=== PATIENT | female | born 1965 ===

== ENCOUNTER 2017-04-22 13:21 | Observation (INO) | payer OTHER ==
[2017-04-22 13:26] VITALS: BMI 41.3
[2017-04-22] MEDS ORDERED: Sodium Chloride 0.9% 1,000 ML IV STA (13:40)
--- NOTE | 2017-04-22 13:43 | ED PDOC ---
Arrival/HPI - General Chief Complaint: ENT Problem Time Seen by Provider: 04/22/17 13:26 Historian: Patient, Family (Daughter) - History of Present Illness Narrative History of Present Illness (Text): 04/22/17 13:36 A 51 year old female, who denies any past medical history, presents to the emergency department complaining of chest pain for the past 3 days. History obtained through daughter who translated for patient. Patient reports she began experiencing chest pain, partly worse with inspiration but associated with sob and worse with exertion. She then developed throat pain when swallowing any food or drinks, and now both her throat pain and cp are exacerbated with deep breaths. She also has bilateral ear pain and a headache. Patient took Tylenol, with no relief. Patient notes a fever of 101, but denies nausea, vomiting, abdominal pain, cough, dizziness, vision changes or any other complaints. Time/Duration: Other (3 days) Symptom Course: Worsening Quality: Other Context: Home Past Medical History - Provider Review Nursing Documentation Reviewed: Yes - Infectious Disease Hx of Infectious Diseases: None - Tetanus Immunization Tetanus Immunization: Unknown - Cardiac Hx Cardiac Disorders: No - Pulmonary Hx Respiratory Disorders: No - Neurological Hx Neurological Disorder: No - HEENT Hx HEENT Disorder: No - Renal Hx Renal Disorder: No - Endocrine/Metabolic Hx Endocrine Disorders: No - Hematological/Oncological Hx Blood Disorders: No - Integumentary Hx Dermatological Disorder: No - Musculoskeletal/Rheumatological Hx Musculoskeletal Disorders: No Hx Falls: No - Gastrointestinal Hx Gastrointestinal Disorders: No - Genitourinary/Gynecological Hx Genitourinary Disorders: No - Psychiatric Hx Psychophysiologic Disorder: No Hx Depression: No Hx Emotional Abuse: No Hx Physical Abuse: No Hx Substance Use: No - Surgical History Hx Section: Yes (x3) Hx Orthopedic Surgery: Yes (left knee) - Suicidal Assessment Feels Threatened In Home Enviroment: No Family/Social History - Physician Review Nursing Documentation Reviewed: Yes Family/Social History: No Known Family HX Smoking Status: Never Smoked Hx Alcohol Use: Yes (socially) Frequency of alcohol use: Socially Hx Substance Use: No Hx Substance Use Treatment: No Allergies/Home Meds Allergies/Adverse Reactions: Allergies No Known Allergies Allergy (Verified 04/22/17 13:27) Home Medications: Home Meds Medication Instructions Recorded Confirmed No Known Home Med 04/22/17 04/22/17 Review of Systems - Physician Review All systems were reviewed & negative as marked: Yes - Review of Systems Constitutional: Fevers Eyes: absent: Vision Changes ENT: TMJ Pain Respiratory: absent: SOB, Cough Cardiovascular: Chest Pain (when swallowing) Gastrointestinal: absent: Abdominal Pain, Nausea, Vomiting Neurological: Headache. absent: Dizziness Physical Exam Vital Signs Reviewed: Yes Vital Signs Temp Pulse Resp BP Pulse Ox 04/22/17 15:54 63 18 127/69 99 04/22/17 13:50 99.3 F 04/22/17 13:31 98.0 F 75 18 117/64 100 Temperature: Afebrile Blood Pressure: Normal Pulse: Regular Respiratory Rate: Normal Appearance: Positive for: Well-Appearing, Non-Toxic, Comfortable, Other ( morbidly obese female ) Pain Distress: None Mental Status: Positive for: Alert and Oriented X 3 - Systems Exam Head: Present: Atraumatic, Normocephalic Pupils: Present: PERRL Conjunctiva: Present: Normal Ears: Present: Normal, NORMAL TM, Normal Canal. No: Erythema, TM Bulging, Fluid , TM Perf Mouth: Present: Moist Mucous Membranes Pharnyx: Present: Normal. No: ERYTHEMA, EXUDATE, TONSILS ENLARGED, Peritonsilar Swelling, Uvular Deviation, Muffled/Hoarse Voice, Strider, Soft Palate/Uvular Edema Neck: Present: Normal Range of Motion Respiratory/Chest: Present: Clear to Auscultation, Good Air Exchange. No: Respiratory Distress, Accessory Muscle Use Cardiovascular: Present: Regular Rate and Rhythm, Normal S1, S2. No: Murmurs Abdomen: Present: Normal Bowel Sounds. No: Tenderness, Distention, Peritoneal Signs Back: Present: Normal Inspection Upper Extremity: Present: Normal Inspection. No: Cyanosis, Edema Lower Extremity: Present: Normal Inspection. No: Edema Neurological: Present: GCS=15, CN II-XII Intact, Speech Normal Skin: Present: Warm, Dry, Normal Color. No: Rashes Psychiatric: Present: Alert, Oriented x 3, Normal Insight, Normal Concentration Medical Decision Making ED Course and Treatment: 04/22/17 13:36 Impression: A 51 year old female with chest pain with exertion and throat pain when swallowing. Differential: ACS vs epiglottitis vs Viral pharyngitis muscular pain vs. GERD vs PE Plan: -- Chest CT -- Neck CT -- Chest xray -- EKG -- Labs -- Toradol and IV fluids -- Reassess and disposition Progress Notes: EKG shows NSR at 67 BPM with normal intervals, borderline LAD, inverted T wave in III and flat in avF; unchanged from 10/26/15. Report Date : 04/22/2017 15:29:49 PROCEDURE: CT NECK WITH CONTRAST Dictator : Donald Zheng MD IMPRESSION: Unremarkable contrast enhanced CT of the neck. Report Date : 04/22/2017 15:33:32 PROCEDURE: CT Chest with contrast (Pulmonary Angiogram) Dictator : Donald Zheng MD IMPRESSION: No evidence of pulmonary embolus Report Date : 04/22/2017 15:35:31 Procedure: Chest xray Dictator : Donald Zheng MD IMPRESSION: No active disease. 04/22/17 16:09 Morbidly obese patient with noted history with exertional chest pain, but then throat pain that may be a pharyngitis. EKG with t wave findings and never worked up before. Labs are nondiagnostic. CTA imaging of the soft tissue neck are unremarkable. She reports improvement of the throat pain only with toradol. Patient will need further assessment for possible cardiac etiology of symptoms. Will place on on-call doctor's service, Dr. Sarmiento, as discussed with him. - Lab Interpretations Lab Results: 04/22/17 14:00 04/22/17 14:00 Lab Results 04/22/17 14:00: Sodium 141, Potassium 4.6, Chloride 100, Carbon Dioxide 33, Anion Gap 13, BUN 11, Creatinine 0.7, Est GFR ( Amer) > 60, Est GFR (Non- Af Amer) > 60, Random Glucose 96, Calcium 9.4, Magnesium 1.8, Total Bilirubin 0.7, AST 22, ALT 18, Alkaline Phosphatase 83, Lactate Dehydrogenase 366, Total Creatine Kinase 64, Troponin I < 0.01, NT-Pro-B Natriuret Pep 121, Total Protein 7.6, Albumin 3.9, Globulin 3.7, Albumin/Globulin Ratio 1.1, Lipase 85 04/22/17 14:00: PT 10.7, INR 0.99, APTT 30.6 04/22/17 14:00: WBC 11.4 H D, RBC 4.09, Hgb 12.2, Hct 37.0, MCV 90.5, MCH 29.8, MCHC 33.0, RDW 12.7, Plt Count 228, MPV 10.7, Gran % 66.5, Lymph % (Auto) 22.7, [place] % (Auto) 8.4 H, Eos % (Auto) 2.0, Baso % (Auto) 0.4, Gran # 7.56 H, Lymph # 2.6, [place] # 1.0 H, Eos # 0.2, Baso # 0.05 I have reviewed the lab results: Yes - RAD Interpretation Radiology Orders: 04/22/17 13:38 NECK SOFT TISSUE W/CONTRAST [CT] Stat 04/22/17 13:39 ANGIO CHEST PE PROTOCOL [CT] Stat 04/22/17 13:40 CHEST PORTABLE [RAD] Stat - Medication Orders Current Medication Orders: Discontinued Medications Sodium Chloride (Sodium Chloride 0.9%) 1,000 mls @ 999 mls/hr IV .Q1H1M STA Stop: 04/22/17 14:40 Last Admin: 04/22/17 14:08 Dose: 999 mls/hr Iodixanol (Visipaque) Confirm Administered Dose 150 ml IV .STK-MED ONE Stop: 04/22/17 13:57 Ketorolac Tromethamine (Toradol) 30 mg IVP STAT STA Stop: 04/22/17 13:42 Last Admin: 04/22/17 14:07 Dose: 30 mg - Scribe Statement The provider has reviewed the documentation as recorded by the Meghana Wagner Provider Scribe Attestation: All medical record entries made by the Josyibkorey were at my direction and personally dictated by me. I have reviewed the chart and agree that the record accurately reflects my personal performance of the history, physical exam, medical decision making, and the department course for this patient. I have also personally directed, reviewed, and agree with the discharge instructions and disposition. Disposition/Present on Arrival - Present on Arrival Any Indicators Present on Arrival: No History of DVT/PE: No History of Uncontrolled Diabetes: No Urinary Catheter: No History of Decub. Ulcer: No History Surgical Site Infection Following: None - Disposition Have Diagnosis and Disposition been Completed?: Yes Diagnosis: Chest pain, Throat pain Disposition: HOSPITALIZED Disposition Time: 16:00 Patient Plan: Observation, Telemetry Patient Problems: Current Active Problems Problem Status Onset Chest pain Acute Throat pain Acute Condition: FAIR Discharge Instructions (ExitCare): Chest Pain (ED) Referrals: PCP,NO [Primary Care Provider] - Follow up with primary Forms: [employer] (Ukrainian)
[2017-04-22] MEDS ORDERED: Iodixanol 320 mg/ml 150 ml Bottle IV ONE (13:56)
[2017-04-22 14:10] LABS: BASO # 0.05 K/mm3 (0.0-2.0); BASO % 0.4 % (0.0-3.0); EOS # 0.2 (0.0-0.7); GRAN # 7.56 (1.4-6.5); GRAN % 66.5 % (50.0-68.0); LYMPH # 2.6 (1.2-3.4); LYMPH % 22.7 % (22.0-35.0); MEAN CELL VOLUME 90.5 fl (80.0-105.0); MEAN CORPUSCULAR HEMOGLOBIN 29.8 pg (25.0-35.0); MEAN PLATELET VOLUME 10.7 fl (7.0-11.0); MONO % 8.4 % (1.0-6.0); RED CELL DISTRIBUTION WIDTH 12.7 % (11.5-14.5); WHITE BLOOD COUNT 11.4 10^3/ul (4.5-11.0)
[2017-04-22 14:18] LABS: ALB/GLOB RATIO 1.1 (1.1-1.8); ALKALINE PHOSPHATASE 83 U/L (38-133); ALT/SGPT 18 U/L (7-56); AST/SGOT 22 U/L (15-39); BILIRUBIN,TOTAL 0.7 mg/dL (0.2-1.3); BLOOD UREA NITROGEN 11 mg/dL (7-21); CALCIUM 9.4 mg/dL (8.4-10.5); CARBON DIOXIDE 33 mmol/L (21-33); CHLORIDE 100 mmol/L (98-107); GFR AFRICAN-AMERICAN > 60; GLUCOSE,RANDOM 96 mg/dL (70-110); INR 0.99 (0.93-1.08); LIPASE 85 U/L (23-300); MAGNESIUM 1.8 mg/dL (1.7-2.2); PARTIAL THROMBOPLASTIN TIME 30.6 Seconds (23.7-30.8); POTASSIUM 4.6 mmol/L (3.6-5.0); SODIUM 141 mmol/L (132-148); TOTAL PROTEIN 7.6 g/dL (5.8-8.3)
[2017-04-22 14:33] LABS: TROPONIN I < 0.01 ng/mL
--- NOTE | 2017-04-22 15:31 | CT ---
PROCEDURE: CT NECK WITH CONTRAST HISTORY: severe throat/cp - r/o lesion, epiglottitis COMPARISON: None TECHNIQUE: CT of the neck with intravenous contrast. Coronal and sagittal reformats generated. Intravenous contrast dose: 150 cc of Omni 350 Radiation dose: DLP 623 mGy-cm This CT exam was performed using one or more of the following dose reduction techniques: Automated exposure control, adjustment of the mA and/or kV according to patient size, and/or use of iterative reconstruction technique. FINDINGS: NASOPHARYNX: Unremarkable. SUPRAHYOID NECK: Unremarkable oropharynx, oral cavity, parapharyngeal space and retropharyngeal space. INFRAHYOID NECK: Unremarkable larynx, hypopharynx, and supraglottic space. Vocal cords intact. MASS: None. GLANDS: Parotid and submandibular glands unremarkable. Normal size thyroid gland, without nodule. LYMPH NODES: Normal. No lymphadenopathy. CERVICAL SPINE: No fracture or focal lesion. VASCULAR STRUCTURES: Unremarkable. OTHER FINDINGS: None. IMPRESSION: Unremarkable contrast enhanced CT of the neck.
--- NOTE | 2017-04-22 15:35 | CT ---
PROCEDURE: CT Chest with contrast (Pulmonary Angiogram) HISTORY: chest pain, throat pain - r/o PE COMPARISON: None available. TECHNIQUE: Axial computed tomography images were obtained of the chest in the pulmonary arterial phase of enhancement. Coronal and sagittal reformatted images were created and reviewed. Intravenous contrast dose: Radiation dose: Total exam DLP = 917 mGy-cm. This CT exam was performed using one or more of the following dose reduction techniques: Automated exposure control, adjustment of the mA and/or kV according to patient size, and/or use of iterative reconstruction technique. FINDINGS: PULMONARY ARTERIES: Unremarkable. No pulmonary embolism. There are some technical difficulties on the PE portion of the study. The upper mediastinum was also image the on the neck study. A combination of the 2 studies shows no evidence of pulmonary embolus AORTA: No acute findings. No thoracic aortic aneurysm. LUNGS: Unremarkable. No nodule, mass or pulmonary consolidation. PLEURAL SPACES: Unremarkable. No effusion or pneuomothorax. HEART: Unremarkable. No cardiomegaly. No significant pericardial effusion. LYMPH NODES: No lymphadenopathy. BONES, CHEST WALL: Unremarkable. No fracture or destructive lesion OTHER FINDINGS: Unremarkable. IMPRESSION: No evidence of pulmonary embolus
--- NOTE | 2017-04-22 15:37 | RAD ---
HISTORY: cp COMPARISON: 09/14/2015 FINDINGS: LUNGS: No active pulmonary disease. PLEURA: No significant pleural effusion identified, no pneumothorax apparent. CARDIOVASCULAR: Mild cardiomegaly OSSEOUS STRUCTURES: No significant abnormalities. VISUALIZED UPPER ABDOMEN: Normal. OTHER FINDINGS: None. IMPRESSION: No active disease.
--- NOTE | 2017-04-22 20:52 | CP.PCM.HP ---
<Maddie Parrish - Last Filed: 04/22/17 22:14> History of Present Illness - History of Present Illness History of Present Illness: PGY-[address] Betts A 51 year old female, who denies any significant past medical history, presents to the emergency department complaining of chest pain for the past 2 days. by bedside translated for the patient. 2 days ago while at work, pt was walking but suddenly felt a 7/10 pressure-like chest pain at mid-substernal area radiating to mid-back and bottom of L breast. Denies diaphoresis, dizziness , palpitation, nausea at the time. Resting relieved the pain, but exertion makes it worse. The pain is occassinally dyspnic. yesterday, when swallowing any food or drinks, and now both her throat pain and cp are exacerbated with deep breaths. She also has bilateral ear pain and a headache. Patient took Tylenol, with no relief. Patient notes a fever of 101, At baseline, pt able to climb 1 flight of stair without SOB. Sleep on 2 pillows but denied orthopnea. No Hx Gerd or acid reflux ROS denies nausea, vomiting, abdominal pain, cough, dizziness, vision changes or edema. No recent travels, sick contact, animal contacts, hiking. Denies trauma, sudden accident, exercising. Upon ED arrival, T 99.3 rectal P 71 BP 111/49 RR 18 100 RA WBC 11.4 coags normal CMP normal Trops < 0.01 Amylase lipse nl PMH:UTI - multiple times. Obesity. Placenta previa. Seasonal allergies. PSH:Left knee meniscus repair 2015. C-Sections x 3. FH: mom- DM, dad - htn SOCIAL HISTORY:Denies smoking, ETOH or drug abuse. Lives in [place], in a house with 2 daughters and , Worked in [employer] in [employer] de[employer]. [employer] HISTORY: ,LMP March 25 2105. ALLERGIES:No known drug allergies. HOME MEDICATIONS:Denies. No PMD Present on Admission - Present on Admission Any Indicators Present on Admission: No Past Patient History - Infectious Disease Hx of Infectious Diseases: None - Tetanus Immunizations Tetanus Immunization: Unknown - Past Medical History & Family History Past Medical History?: Yes - Past Social History Smoking Status: Never Smoked - CARDIAC Hx Cardiac Disorders: No - PULMONARY Hx Respiratory Disorders: No - NEUROLOGICAL Hx Neurological Disorder: No - HEENT Hx HEENT Problems: No - RENAL Hx Chronic Kidney Disease: No - ENDOCRINE/METABOLIC Hx Endocrine Disorders: No - HEMATOLOGICAL/ONCOLOGICAL Hx Blood Disorders: No - INTEGUMENTARY Hx Dermatological Problems: No - MUSCULOSKELETAL/RHEUMATOLOGICAL Hx Musculoskeletal Disorders: No Hx Falls: No - GASTROINTESTINAL Hx Gastrointestinal Disorders: No - GENITOURINARY/GYNECOLOGICAL Hx Genitourinary Disorders: No - PSYCHIATRIC Hx Psychophysiologic Disorder: No Hx Depression: No Hx Emotional Abuse: No Hx Physical Abuse: No Hx Substance Use: No - SURGICAL HISTORY Hx Section: Yes (x3) Hx Orthopedic Surgery: Yes (left knee) Meds Allergies/Adverse Reactions: Allergies Allergy/AdvReac Type Severity Reaction Status Date / Time No Known Allergies Allergy Verified 04/22/17 13:27 Physical Exam - Constitutional Appears: No Acute Distress - Head Exam Head Exam: ATRAUMATIC, NORMAL INSPECTION, NORMOCEPHALIC - Eye Exam Eye Exam: EOMI, Normal appearance, PERRL. absent: Scleral icterus - ENT Exam ENT Exam: Mucous Membranes Moist - Neck Exam Neck exam: Negative for: Lymphadenopathy - Respiratory Exam Respiratory Exam: Clear to Auscultation Bilateral, NORMAL BREATHING PATTERN. absent: Rales, Rhonchi, Wheezes - Cardiovascular Exam Cardiovascular Exam: REGULAR RHYTHM, +S1, +S2 - GI/Abdominal Exam GI & Abdominal Exam: Normal Bowel Sounds, Rigid, Soft. absent: Distended, Firm , Tenderness - Extremities Exam Extremities exam: Positive for: normal capillary refill, pedal pulses present. Negative for: calf tenderness, pedal edema - Back Exam Back exam: absent: CVA tenderness (L), CVA tenderness (R) - Neurological Exam Neurological exam: Alert, CN II-XII Intact, Oriented x3, Reflexes Normal - Psychiatric Exam Psychiatric exam: Normal Affect, Normal Mood - Skin Skin Exam: Dry, Warm Results - Vital Signs Recent Vital Signs: Last Vital Signs Temp 99.3 F 04/22/17 13:50 Pulse 71 04/22/17 20:18 Resp 16 04/22/17 20:18 BP 136/61 04/22/17 20:18 Pulse Ox 99 04/22/17 20:18 - Labs Result Diagrams: 04/22/17 14:00 04/22/17 14:00 Assessment & Plan - Assessment and Plan (Free Text) Plan: A 51 year old female, who denies any significant past medical history, admitted for chest pain r/o ACS. Chest pain r/o ACS - Cardio consult - trops x 3 - A1c, lipid, TSH - toradol prn Mild Fever with mild leukocytosis - u/a pending - allergic vs viral, doubt bacterial - flu swab - ocean nasal spray, cepacol - tamiflu - tylenol prn Prophylaixs - lovenox - protonix - Heart health diet s/r/d/w Dr. Betts - Date & Time Date: 04/22/17 Time: 22:04 <Carlos Enrique Betts - Last Filed: 04/26/17 09:07> Results - Vital Signs Recent Vital Signs: Last Vital Signs Temp 98.5 F 04/23/17 11:24 Pulse 60 04/23/17 11:24 Resp 18 04/23/17 11:24 BP 112/58 L 04/23/17 11:24 Pulse Ox 100 04/23/17 06:00 - Labs Result Diagrams: 04/23/17 05:30 04/23/17 05:30 Attending/Attestation - Attestation I have personally seen and examined this patient.: Yes I have fully participated in the care of the patient.: Yes I have reviewed all pertinent clinical information: Yes Notes (Text): 04/26/17 09:07 Agree with history, physical examination, assessment and plan.
[2017-04-22] MEDS ORDERED: Pneumococcal 23-Valent Vaccine IM ONE (23:02)
[2017-04-23 06:23] LABS: BASO # 0.06 K/mm3 (0.0-2.0); BASO % 0.7 % (0.0-3.0); EOS # 0.3 (0.0-0.7); EOS % 3.4 % (1.5-5.0); GRAN # 4.87 (1.4-6.5); LYMPH # 2.5 (1.2-3.4); LYMPH % 28.1 % (22.0-35.0); MEAN CELL VOLUME 91.6 fl (80.0-105.0); MEAN CORPUSCULAR HEMOGLOBIN 29.3 pg (25.0-35.0); MEAN CORPUSCULAR HGB CONC 31.9 g/dl (31.0-37.0); MONO # 1.1 (0.1-0.6); MONO % 12.8 % (1.0-6.0); WHITE BLOOD COUNT 8.9 10^3/ul (4.5-11.0)
[2017-04-23 06:37] LABS: ALKALINE PHOSPHATASE 77 U/L (38-133); ALT/SGPT 18 U/L (7-56); AST/SGOT 21 U/L (15-39); BILIRUBIN,TOTAL 0.4 mg/dL (0.2-1.3); BLOOD UREA NITROGEN 14 mg/dL (7-21); CALCIUM 9.3 mg/dL (8.4-10.5); CARBON DIOXIDE 31 mmol/L (21-33); CHLORIDE 103 mmol/L (98-107); CHOLESTEROL 203 mg/dL (130-200); GFR AFRICAN-AMERICAN > 60; GLUCOSE,RANDOM 95 mg/dL (70-110); POTASSIUM 4.5 mmol/L (3.6-5.0); SODIUM 142 mmol/L (132-148); TOTAL PROTEIN 7.2 g/dL (5.8-8.3)
[2017-04-23 06:46] VITALS: O2SAT 100
[2017-04-23 07:26] LABS: TROPONIN I < 0.01 ng/mL
[2017-04-23 08:37] LABS: URINE BILIRUBIN NEGATIVE (NEGATIVE); URINE BLOOD TRACE-INTACT (NEGATIVE); URINE GLUCOSE (UA) NEGATIVE (NEGATIVE); URINE KETONE NEGATIVE (NEGATIVE); URINE LEUKOCYTE ESTERASE NEGATIVE Leu/uL (NEGATIVE); URINE PROTEIN NEGATIVE mg/dL (<30 mg/dL); URINE UROBILINOGEN 0.2 E.U./dL (<1 E.U./dL)
[2017-04-23 08:39] LABS: URINE APPEARANCE CLEAR (CLEAR); URINE COLOR YELLOW (YELLOW)
[2017-04-23 08:54] LABS: URINE AMORPHOUS SEDIMENT FEW; URINE BACTERIA FEW (NEG); URINE EPITHELIAL CELLS 0 - 2 /hpf (0-5); URINE WBC NEGATIVE /hpf (0-6)
--- NOTE | 2017-04-23 09:49 | CARD ---
APPROVED REPORT EKG Measurement Heart [id number] <Conclusion> Normal sinus rhythm Minimal voltage criteria for LVH, may be normal variant Borderline ECG
[2017-04-23] MEDS ORDERED: Benzocaine/Menthol (Cepacol) Lozenge MT SCH (10:00)
[2017-04-23 11:24] VITALS: BP 112/58; PULSE 60; RESP 18; TEMP 98.5
--- NOTE | 2017-04-23 13:01 | CP.PCM.DIS ---
<AzaelXavi - Last Filed: 04/24/17 15:27> Provider - Provider Date of Admission: 04/22/17 16:03 Attending physician: Mehdi Blanchard MD Primary care physician: NO PRIMARY CARE PROVIDER Time Spent in preparation of Discharge (in minutes): 45 Hospital Course - Lab Results Lab Results: Most Recent Lab Values WBC 8.9 10^3/ul (4.5-11.0) D 04/23/17 05:30 RBC 3.93 10^6/uL (3.5-6.1) 04/23/17 05:30 Hgb 11.5 g/dL (12.0-16.0) L 04/23/17 05:30 Hct 36.0 % (36.0-48.0) 04/23/17 05:30 MCV 91.6 fl (80.0-105.0) 04/23/17 05:30 MCH 29.3 pg (25.0-35.0) 04/23/17 05:30 MCHC 31.9 g/dl (31.0-37.0) 04/23/17 05:30 RDW 13.0 % (11.5-14.5) 04/23/17 05:30 Plt Count 216 10^3/uL (120.0-450.0) 04/23/17 05:30 MPV 11.0 fl (7.0-11.0) 04/23/17 05:30 Gran % 55.0 % (50.0-68.0) 04/23/17 05:30 Lymph % (Auto) 28.1 % (22.0-35.0) 04/23/17 05:30 [place] % (Auto) 12.8 % (1.0-6.0) H 04/23/17 05:30 Eos % (Auto) 3.4 % (1.5-5.0) 04/23/17 05:30 Baso % (Auto) 0.7 % (0.0-3.0) 04/23/17 05:30 Gran # 4.87 (1.4-6.5) 04/23/17 05:30 Lymph # 2.5 (1.2-3.4) 04/23/17 05:30 [place] # 1.1 (0.1-0.6) H 04/23/17 05:30 Eos # 0.3 (0.0-0.7) 04/23/17 05:30 Baso # 0.06 K/mm3 (0.0-2.0) 04/23/17 05:30 PT 10.7 Seconds (9.9-11.8) 04/22/17 14:00 INR 0.99 (0.93-1.08) 04/22/17 14:00 APTT 30.6 Seconds (23.7-30.8) 04/22/17 14:00 Sodium 142 mmol/L (132-148) 04/23/17 05:30 Potassium 4.5 mmol/L (3.6-5.0) 04/23/17 05:30 Chloride 103 mmol/L (98-107) 04/23/17 05:30 Carbon Dioxide 31 mmol/L (21-33) 04/23/17 05:30 Anion Gap 13 (10-20) 04/23/17 05:30 BUN 14 mg/dL (7-21) 04/23/17 05:30 Creatinine 0.7 mg/dL (0.5-1.4) 04/23/17 05:30 Est GFR ( Amer) > 60 04/23/17 05:30 Est GFR (Non-Af Amer) > 60 04/23/17 05:30 Random Glucose 95 mg/dL (70-110) 04/23/17 05:30 Hemoglobin A1c 5.1 % (4.2-6.5) 04/23/17 05:30 Calcium 9.3 mg/dL (8.4-10.5) 04/23/17 05:30 Magnesium 1.8 mg/dL (1.7-2.2) 04/22/17 14:00 Total Bilirubin 0.4 mg/dL (0.2-1.3) 04/23/17 05:30 AST 21 U/L (15-39) 04/23/17 05:30 ALT 18 U/L (7-56) 04/23/17 05:30 Alkaline Phosphatase 77 U/L (38-133) 04/23/17 05:30 Lactate Dehydrogenase 366 U/L (333-699) 04/22/17 14:00 Total Creatine Kinase 64 U/L (35-230) 04/22/17 14:00 Troponin I < 0.01 ng/mL 04/23/17 05:30 NT-Pro-B Natriuret Pep 121 pg/mL (0-450) 04/22/17 14:00 Total Protein 7.2 g/dL (5.8-8.3) 04/23/17 05:30 Albumin 3.6 g/dL (3.0-4.8) 04/23/17 05:30 Globulin 3.7 gm/dL 04/23/17 05:30 Albumin/Globulin Ratio 1.0 (1.1-1.8) L 04/23/17 05:30 Triglycerides 92 mg/dL (35-160) 04/23/17 05:30 Cholesterol 203 mg/dL (130-200) H 04/23/17 05:30 LDL Cholesterol Direct 118 mg/dL (0-129) 04/23/17 05:30 HDL Cholesterol 45 mg/dL (29-60) 04/23/17 05:30 Lipase 85 U/L (23-300) 04/22/17 14:00 TSH 3rd Generation 2.09 mIU/mL (0.46-4.68) 04/23/17 05:30 Urine Color Yellow (YELLOW) 04/23/17 08:26 Urine Appearance Clear (CLEAR) 04/23/17 08:26 Urine pH 6.0 (4.7-8.0) 04/23/17 08:26 Ur Specific [place] 1.020 (1.005-1.035) 04/23/17 08:26 Urine Protein Negative mg/dL (<30 mg/dL) 04/23/17 08:26 Urine Glucose (UA) Negative mg/dL (NEGATIVE) 04/23/17 08:26 Urine Ketones Negative mg/dL (NEGATIVE) 04/23/17 08:26 Urine Blood Trace-intact (NEGATIVE) H 04/23/17 08:26 Urine Nitrate Negative (NEGATIVE) 04/23/17 08:26 Urine Bilirubin Negative (NEGATIVE) 04/23/17 08:26 Urine Urobilinogen 0.2 E.U./dL (<1 E.U./dL) 04/23/17 08:26 Ur Leukocyte Esterase Negative Regla/uL (NEGATIVE) 04/23/17 08:26 Urine RBC 1 - 3 /hpf (0-2) 04/23/17 08:26 Urine WBC Negative /hpf (0-6) 04/23/17 08:26 Ur Epithelial Cells 0 - 2 /hpf (0-5) 04/23/17 08:26 Amorphous Sediment Few 04/23/17 08:26 Urine Bacteria Few (NEG) 04/23/17 08:26 Urine HCG, Qual Negative (NEGATIVE) 04/23/17 08:26 Influenza Typ A,B (EIA) Negative for flu a/b (NEGATIVE) 04/22/17 22:18 - Hospital Course Hospital Course: This is 51 yr. female complaining of chest pain for two days. She reports she was at work and at rest while this occurred and rated the pain a 7/10 in severity. She also reported the pain radiating under her left breast. On , the patient had an EKG done that show normals sinus rhythm, chest xray that showed no active pulmonary disease, chest ct that was negative, and a soft tissue CT of the neck that was unremarkable. She also had troponins (-)x3. She was seen by Dr. Madden on 04/23 and agreed that she could go home today and follow up as an outpatient. We gave the patient a card to the [facility] and advised her to establish primary care there for follow up. Discharge Exam - Head Exam Head Exam: ATRAUMATIC, NORMAL INSPECTION, NORMOCEPHALIC - Eye Exam Eye Exam: EOMI, Normal appearance, PERRL Pupil Exam: NORMAL ACCOMODATION, PERRL. absent: Miosis - ENT Exam ENT Exam: Mucous Membranes Moist - Neck Exam Neck exam: Normal Inspection - Respiratory Exam Respiratory Exam: Clear to PA & Lateral, NORMAL BREATHING PATTERN, UNREMARKABLE. absent: Wheezes, Respiratory Distress - Cardiovascular Exam Cardiovascular Exam: REGULAR RHYTHM, RRR, +S1, +S2. absent: Rubs - GI/Abdominal Exam GI & Abdominal Exam: Normal Bowel Sounds, Soft. absent: Mass, Pulsatile Mass, Rigid - Extremities Exam Extremities exam: full ROM - Neurological Exam Neurological exam: Alert, CN II-XII Intact, Oriented x3, Reflexes Normal - Psychiatric Exam Psychiatric exam: Normal Affect, Normal Mood - Skin Skin Exam: Dry, Intact, Normal Color Discharge Plan - Discharge Medications Prescriptions: Amoxicillin/Clavulanate [Augmentin 875 MG-125 MG] 1 tab PO BID #10 tab Benzocaine/Menthol [Cepacol Sore Throat] 1 sonya MM Q6 #15 sonya - Follow Up Plan Condition: FAIR Disposition: HOME/ ROUTINE Instructions: Chest Pain (DC), Chest Pain (GEN) Additional Instructions: 1. Follow up with [facility] on Thursday. 2. Follow up outpatient stress test with Dr. madden. (05/01/17.) Referrals: PCP,NO [Primary Care Provider] - <Mehdi Blanchard - Last Filed: 04/24/17 17:02> Provider - Provider Date of Admission: 04/22/17 16:03 Attending physician: Mehdi Blanchard MD Primary care physician: CAMILA PRIMARY CARE PROVIDER Hospital Course - Lab Results Lab Results: Micro Results 04/23/17 08:26 Urine Urine Culture - Final 10-50,000 CFU/ML. MULTIPLE SPECIES. PROBABLE CONTAMINATION. Most Recent Lab Values WBC 8.9 10^3/ul (4.5-11.0) D 04/23/17 05:30 RBC 3.93 10^6/uL (3.5-6.1) 04/23/17 05:30 Hgb 11.5 g/dL (12.0-16.0) L 04/23/17 05:30 Hct 36.0 % (36.0-48.0) 04/23/17 05:30 MCV 91.6 fl (80.0-105.0) 04/23/17 05:30 MCH 29.3 pg (25.0-35.0) 04/23/17 05:30 MCHC 31.9 g/dl (31.0-37.0) 04/23/17 05:30 RDW 13.0 % (11.5-14.5) 04/23/17 05:30 Plt Count 216 10^3/uL (120.0-450.0) 04/23/17 05:30 MPV 11.0 fl (7.0-11.0) 04/23/17 05:30 Gran % 55.0 % (50.0-68.0) 04/23/17 05:30 Lymph % (Auto) 28.1 % (22.0-35.0) 04/23/17 05:30 [place] % (Auto) 12.8 % (1.0-6.0) H 04/23/17 05:30 Eos % (Auto) 3.4 % (1.5-5.0) 04/23/17 05:30 Baso % (Auto) 0.7 % (0.0-3.0) 04/23/17 05:30 Gran # 4.87 (1.4-6.5) 04/23/17 05:30 Lymph # 2.5 (1.2-3.4) 04/23/17 05:30 [place] # 1.1 (0.1-0.6) H 04/23/17 05:30 Eos # 0.3 (0.0-0.7) 04/23/17 05:30 Baso # 0.06 K/mm3 (0.0-2.0) 04/23/17 05:30 PT 10.7 Seconds (9.9-11.8) 04/22/17 14:00 INR 0.99 (0.93-1.08) 04/22/17 14:00 APTT 30.6 Seconds (23.7-30.8) 04/22/17 14:00 Sodium 142 mmol/L (132-148) 04/23/17 05:30 Potassium 4.5 mmol/L (3.6-5.0) 04/23/17 05:30 Chloride 103 mmol/L (98-107) 04/23/17 05:30 Carbon Dioxide 31 mmol/L (21-33) 04/23/17 05:30 Anion Gap 13 (10-20) 04/23/17 05:30 BUN 14 mg/dL (7-21) 04/23/17 05:30 Creatinine 0.7 mg/dL (0.5-1.4) 04/23/17 05:30 Est GFR ( Amer) > 60 04/23/17 05:30 Est GFR (Non-Af Amer) > 60 04/23/17 05:30 Random Glucose 95 mg/dL (70-110) 04/23/17 05:30 Hemoglobin A1c 5.1 % (4.2-6.5) 04/23/17 05:30 Calcium 9.3 mg/dL (8.4-10.5) 04/23/17 05:30 Magnesium 1.8 mg/dL (1.7-2.2) 04/22/17 14:00 Total Bilirubin 0.4 mg/dL (0.2-1.3) 04/23/17 05:30 AST 21 U/L (15-39) 04/23/17 05:30 ALT 18 U/L (7-56) 04/23/17 05:30 Alkaline Phosphatase 77 U/L (38-133) 04/23/17 05:30 Lactate Dehydrogenase 366 U/L (333-699) 04/22/17 14:00 Total Creatine Kinase 64 U/L (35-230) 04/22/17 14:00 Troponin I < 0.01 ng/mL 04/23/17 05:30 NT-Pro-B Natriuret Pep 121 pg/mL (0-450) 04/22/17 14:00 Total Protein 7.2 g/dL (5.8-8.3) 04/23/17 05:30 Albumin 3.6 g/dL (3.0-4.8) 04/23/17 05:30 Globulin 3.7 gm/dL 04/23/17 05:30 Albumin/Globulin Ratio 1.0 (1.1-1.8) L 04/23/17 05:30 Triglycerides 92 mg/dL (35-160) 04/23/17 05:30 Cholesterol 203 mg/dL (130-200) H 04/23/17 05:30 LDL Cholesterol Direct 118 mg/dL (0-129) 04/23/17 05:30 HDL Cholesterol 45 mg/dL (29-60) 04/23/17 05:30 Lipase 85 U/L (23-300) 04/22/17 14:00 TSH 3rd Generation 2.09 mIU/mL (0.46-4.68) 04/23/17 05:30 Urine Color Yellow (YELLOW) 04/23/17 08:26 Urine Appearance Clear (CLEAR) 04/23/17 08:26 Urine pH 6.0 (4.7-8.0) 04/23/17 08:26 Ur Specific [place] 1.020 (1.005-1.035) 04/23/17 08:26 Urine Protein Negative mg/dL (<30 mg/dL) 04/23/17 08:26 Urine Glucose (UA) Negative mg/dL (NEGATIVE) 04/23/17 08:26 Urine Ketones Negative mg/dL (NEGATIVE) 04/23/17 08:26 Urine Blood Trace-intact (NEGATIVE) H 04/23/17 08:26 Urine Nitrate Negative (NEGATIVE) 04/23/17 08:26 Urine Bilirubin Negative (NEGATIVE) 04/23/17 08:26 Urine Urobilinogen 0.2 E.U./dL (<1 E.U./dL) 04/23/17 08:26 Ur Leukocyte Esterase Negative Regla/uL (NEGATIVE) 04/23/17 08:26 Urine RBC 1 - 3 /hpf (0-2) 04/23/17 08:26 Urine WBC Negative /hpf (0-6) 04/23/17 08:26 Ur Epithelial Cells 0 - 2 /hpf (0-5) 04/23/17 08:26 Amorphous Sediment Few 04/23/17 08:26 Urine Bacteria Few (NEG) 04/23/17 08:26 Urine HCG, Qual Negative (NEGATIVE) 04/23/17 08:26 Influenza Typ A,B (EIA) Negative for flu a/b (NEGATIVE) 04/22/17 22:18 Attending/Attestation - Attestation I have personally seen and examined this patient.: Yes I have fully participated in the care of the patient.: Yes I have reviewed all pertinent clinical information, including history, physical exam and plan: Yes Notes (Text): 04/24/17 17:00 attending note; Patient seen and examined with resident. Patient is a 51-year-old female admitted with chest pain/URI symptoms. Cardiac enzymes 3 negative. cardiology evaluation with Dr. Madden appreciated. Outpatient stress test arranged. Pharyngitis; treated with po augmentin. patient will be discharged home today. Follow-up with PMD of choice. diagnosis; Chest pain Pharyngitis/URI Obesity 04/24/17 17:01 04/24/17 17:02
--- NOTE | 2017-04-23 18:12 | CON ---
DATE: 04/23/2017 CARDIOLOGY CONSULTATION HISTORY OF PRESENT ILLNESS: The patient is a 51-year-old woman with no past medical history who presents with pleuritic like chest pain. Her symptoms reproducible and increased with inspiration. The patient denies previous cardiac history. No diabetes mellitus. No hypertension. SOCIAL HISTORY: Denies smoking. REVIEW OF SYSTEMS: Fourteen point review of systems was reviewed in detail. No cardiac symptomatology is noted. PHYSICAL EXAMINATION: VITAL SIGNS: Blood pressure 122/51, heart rate in the 70s. NECK: Negative JVD. LUNGS: Without rales. HEART: Reveal S1, S2. EXTREMITIES: Without edema. The chest wall pain is reproducible on palpation. LABORATORY DATA: Reveals an EKG that is within normal limits. Troponins are negative x3. Hemoglobin is 11.5. IMPRESSION: 1. Atypical chest pain. 2. No evidence for pulmonary embolism. 3. No evidence for acute coronary syndrome. 4. Mild anemia. 5. Morbid obesity. Given these findings, there is no evidence for acute coronary syndrome. The patient can be discharged today. We will arrange for an outpatient LEXISCAN which we done next week. The patient cannot exercise or cannot walk on the treadmill. Yariel Madden MD
== END 2017-04-23 14:21 | disposition home or self-care (01) ==
LOC: ED 13:21 → ERH 16:03 → 2RNO 21:30
PROVIDERS: ADMIT Internal Medicine; ATTEND Internal Medicine
DX: R07.89 Other chest pain (principal); J02.9 Acute pharyngitis, unspecified; D64.9 Anemia, unspecified; E66.01 Morbid (severe) obesity due to excess calories; Z68.41 Body mass index [BMI] 40.0-44.9, adult
CPT/HCPCS: 36415; 70491; 71010; 71275; 80053; 80061; 81001; 82550; 83036; 83615; 83690; 83735; 83880; 84443; 84484; 84703; 85025; 85610; 85730; 87086; 87804; 93005; 96361; 96374; 99285; G0378; J1885; J7040

== ENCOUNTER 2018-12-28 17:13 | Emergency (ER) | payer OTHER ==
[2018-12-28 17:31] VITALS: BMI 47.0
[2018-12-28 17:35] VITALS: O2SAT 100
--- NOTE | 2018-12-28 17:43 | ED PDOC ---
Arrival/HPI - General Historian: Patient, Representative - History of Present Illness Narrative History of Present Illness (Text): 12/28/18 17:52 Pt is a 53 yo female with no known PMH who presets to the ED complaining of shortness of breath which started yesterday. She denies tobacco use, asthma, or COPD. Pt reports feeling fever and chills since yesterday. Pt states she has had a sick contact while at work, who had similar symptoms. Pt denies nausea or vomiting. Time/Duration: 4-6 hours Symptom Onset: Gradual Symptom Course: Worsening <Jordan Ramirez - Last Filed: 12/28/18 19:45> <Sloan López DO - Last Filed: 12/28/18 20:06> - General Chief Complaint: Shortness Of Breath Past Medical History - Infectious Disease Hx of Infectious Diseases: None - Tetanus Immunization Tetanus Immunization: Unknown - Cardiac Hx Cardiac Disorders: No - Pulmonary Hx Respiratory Disorders: No - Neurological Hx Neurological Disorder: No - HEENT Hx HEENT Disorder: Yes (eyeglasses) - Renal Hx Renal Disorder: No - Endocrine/Metabolic Hx Endocrine Disorders: No - Hematological/Oncological Hx Blood Disorders: No - Integumentary Hx Dermatological Disorder: Yes Other/Comment: multiple skin discoloratins ble, bruises easily the past 5 or 6 yrs - Musculoskeletal/Rheumatological Hx Falls: No - Gastrointestinal Hx Gastrointestinal Disorders: Yes (obese) - Genitourinary/Gynecological Hx Genitourinary Disorders: No - Psychiatric Hx Psychophysiologic Disorder: No Hx Depression: No Hx Emotional Abuse: No Hx Physical Abuse: No Hx Substance Use: No - Surgical History Hx Section: Yes Hx Orthopedic Surgery: Yes (left knee, shoulder) Other/Comment: job related injury had left knee drained and sx for torn meniscus 2013, c sections x 3 - Anesthesia Hx Anesthesia: Yes - Suicidal Assessment Feels Threatened In Home Enviroment: No <Jordan Ramirez - Last Filed: 12/28/18 19:45> Family/Social History Family/Social History: Unknown Family HX Smoking Status: Never Smoked Hx Alcohol Use: Yes (social) Frequency of alcohol use: Socially Hx Substance Use: No Hx Substance Use Treatment: No <Jordan Ramirez - Last Filed: 12/28/18 19:45> Allergies/Home Meds <Jordan Ramirez - Last Filed: 12/28/18 19:45> <Sloan López DO - Last Filed: 12/28/18 20:06> Allergies/Adverse Reactions: Allergies No Known Allergies Allergy (Verified 12/28/18 17:31) Physical Exam Vital Signs Pulse Resp BP Pulse Ox 12/28/18 17:31 77 18 158/76 H 100 Temperature: Afebrile Blood Pressure: Normal Pulse: Regular Respiratory Rate: Normal Appearance: Positive for: Other (SOB) Mental Status: Positive for: Alert and Oriented X 3 - Systems Exam Head: Present: Atraumatic, Normocephalic Pupils: Present: PERRL Extroacular Muscles: Present: EOMI Mouth: Present: Moist Mucous Membranes Respiratory/Chest: Present: Wheezes. No: Clear to Auscultation, Accessory Muscle Use Cardiovascular: Present: Regular Rate and Rhythm, Normal S1, S2 Abdomen: Present: Normal Bowel Sounds. No: Tenderness, Distention Upper Extremity: Present: Normal Inspection Lower Extremity: Present: Normal Inspection Neurological: Present: GCS=15, CN II-XII Intact Skin: Present: Warm, Dry, Rashes Psychiatric: Present: Alert, Oriented x 3 <Jordan Ramirez - Last Filed: 12/28/18 19:45> Vital Signs Pulse Resp BP Pulse Ox 12/28/18 19:27 60 19 129/103 H 100 12/28/18 17:45 21 100 12/28/18 17:31 77 18 158/76 H 100 <Sloan López DO - Last Filed: 12/28/18 20:06> Medical Decision Making ED Course and Treatment: 12/28/18 17:43 troponin BNP EKG: NSR, no signs of ST or T wave abnormality CBC CMP CXR 12/28/18 18:11 12/28/18 19:23 pt reevaluated, looking much better, will likely discharge 12/28/18 19:42 pt given note for work Pt seen, examined, assessment and plan discussed with Dr Rene Ramirez PGY1 - RAD Interpretation Radiology Orders: 12/28/18 17:37 CXR [CHEST PORTABLE] [RAD] Stat <Jordan Ramirez - Last Filed: 12/28/18 19:45> - Lab Interpretations Lab Results: Troponin I < 0.01 ng/mL 12/28/18 18:20 NT-Pro-B Natriuret Pep 208 pg/mL (0-450) 12/28/18 18:20 Total Bilirubin 0.4 mg/dL (0.2-1.3) 12/28/18 18:20 AST 31 U/L (14-36) 12/28/18 18:20 ALT < 6 U/L (7-56) L 12/28/18 18:20 Alkaline Phosphatase 68 U/L (38-126) 12/28/18 18:20 Total Protein 7.4 g/dL (5.8-8.3) 12/28/18 18:20 Albumin 3.7 g/dL (3.0-4.8) 12/28/18 18:20 Globulin 3.7 gm/dL 12/28/18 18:20 Albumin/Globulin Ratio 1.0 (1.1-1.8) L 12/28/18 18:20 - RAD Interpretation Radiology Orders: 12/28/18 17:37 CXR [CHEST PORTABLE] [RAD] Stat - Medication Orders Current Medication Orders: Discontinued Medications Sodium Chloride (Sodium Chloride 0.9%) 1,000 mls @ 250 mls/hr IV .Q4H ONE Stop: 12/28/18 22:02 Last Admin: 12/28/18 18:20 Dose: 250 mls/hr eMAR Start Stop Document 12/28/18 18:20 CD (Rec: 12/28/18 18:21 CD [facility] [id number]) Intravenous Solution Start Date 12/28/18 Start Time 18:20 End Date 12/28/18 End time 22:20 Total Infusion Time 240 Ketorolac Tromethamine (Toradol) 30 mg IVP STAT STA Stop: 12/28/18 18:04 Last Admin: 12/28/18 18:21 Dose: 30 mg MAR Pain Assessment Document 12/28/18 18:21 CD (Rec: 12/28/18 18:21 CD [facility] [place]) Pain Reassessment Is this a pain reassessment? No Sleep Is patient sleeping during reassessment? No Presence of Pain Presence of Pain Yes Description Description Intermittent Intensity of Pain at present 8 IVP Administration Document 12/28/18 18:21 CD (Rec: 12/28/18 18:21 CD [facility] [id number]) Charges for Administration # of IVP Administrations 1 <Sloan López DO - Last Filed: 12/28/18 20:06> - PA / MAIL HAND[employer]ER [employer]ORTER / Resident Statement PAUL has reviewed & agrees with the documentation as recorded. PAUL has examined the patient and agrees with the treatment plan. <Sloan López DO - Last Filed: 12/28/18 20:06> Disposition/Present on Arrival - Present on Arrival Any Indicators Present on Arrival: No History of DVT/PE: No History of Uncontrolled Diabetes: No Urinary Catheter: No History of Decub. Ulcer: No History Surgical Site Infection Following: None - Disposition Have Diagnosis and Disposition been Completed?: Yes Disposition Time: 19:45 <Jordan Ramirez - Last Filed: 12/28/18 19:45> - Disposition Disposition Time: 19:00 <Sloan López DO - Last Filed: 12/28/18 20:06> - Disposition Diagnosis: Viral syndrome Disposition: HOME/ ROUTINE Condition: IMPROVED Discharge Instructions (ExitCare): Viral Syndrome (DC) Additional Instructions: MARIBEL DALLAS, thank you for letting us take care of you today. The emergency medical care you received today was directed at your acute symptoms. If you were prescribed any medication, please fill it and take as directed. It may take several days for your symptoms to resolve. Return to the Emergency Department if your symptoms worsen, do not improve, or if you have any other problems. Please contact your doctor or call one of the physicians/clinics you have been referred to that are listed on the Patient Visit Information form that is included in your discharge packet. Bring any paperwork you were given at discharge with you along with any medications you are taking to your follow up visit. Our treatment cannot replace ongoing medical care by a primary care provider outside of the emergency department. Thank you for allowing the [facility] team to be part of your care today. Follow up with your primary care doctor or our clinic in 3-5 days for re- evaluation and further management. Prescriptions: Cetirizine HCl [Zyrtec] 10 mg PO DAILY #20 capsule Ibuprofen [Motrin] 600 mg PO Q6 PRN #20 tab PRN Reason: Pain, Moderate (4-7) Referrals: [facility] [Outside] - Follow up with primary [facility], [Non-Staff] - Follow up with primary Michelle Huizar MD [Medical Doctor] - Follow up with primary Forms: [employer] (Maltese), WORK NOTE
[2018-12-28] MEDS ORDERED: Sodium Chloride 0.9% 1,000 ML IV ONE (18:03)
[2018-12-28 19:01] LABS: BASO # 0.06 K/mm3 (0.0-2.0); BASO % 0.8 % (0.0-3.0); EOS # 0.2 (0.0-0.7); EOS % 2.8 % (1.5-5.0); LYMPH # 2.2 (1.2-3.4); LYMPH % 30.2 % (22.0-35.0); MEAN CELL VOLUME 90.7 fl (80.0-105.0); MEAN CORPUSCULAR HEMOGLOBIN 28.7 pg (25.0-35.0); MEAN CORPUSCULAR HGB CONC 31.7 g/dl (31.0-37.0); MEAN PLATELET VOLUME 11.4 fl (7.0-11.0); MONO # 0.5 (0.1-0.6); MONO % 7.2 % (1.0-6.0); RBC 4.18 10^6/uL (3.5-6.1); RED CELL DISTRIBUTION WIDTH 12.9 % (11.5-14.5); WHITE BLOOD COUNT 7.3 10^3/uL (4.5-11.0)
[2018-12-28 19:07] LABS: ALBUMIN 3.7 g/dL (3.0-4.8); AST/SGOT 31 U/L (14-36); BLOOD UREA NITROGEN 11 mg/dL (7-21); CALCIUM 9.3 mg/dL (8.4-10.5); GFR NON-AFRICAN AMERICAN > 60
[2018-12-28 19:08] LABS: ALT/SGPT < 6 U/L (7-56)
[2018-12-28 19:12] LABS: TROPONIN I < 0.01 ng/mL
[2018-12-28 19:15] LABS: B-TYPE NATRIURETIC PEPTIDE 208 pg/mL (0-450)
[2018-12-28 19:29] VITALS: BP 129/103; PULSE 60; RESP 19
--- NOTE | 2018-12-29 08:06 | RAD ---
Date of service: 12/28/2018 HISTORY: SOB COMPARISON: 04/22/2017 TECHNIQUE: 1 view obtained. FINDINGS: LUNGS: No active pulmonary disease. PLEURA: No significant pleural effusion identified, no pneumothorax apparent. CARDIOVASCULAR: No aortic atherosclerotic calcification present. Mild cardiomegaly no pulmonary vascular congestion. OSSEOUS STRUCTURES: No significant abnormalities. VISUALIZED UPPER ABDOMEN: Normal. OTHER FINDINGS: None. IMPRESSION: No active disease.
--- NOTE | 2018-12-29 09:39 | CARD ---
APPROVED REPORT Date of service: 12/28/2018 EKG Measurement Heart [id number] <Conclusion> Normal sinus rhythm Normal ECG
== END 2018-12-28 19:49 | disposition home or self-care (01) ==
LOC: ED 17:13
DX: B34.9 Viral infection, unspecified (principal)
CPT/HCPCS: 71045; 80053; 83880; 84484; 85025; 93005; 96361; 96374; 99284; J1885; J7030